=== PATIENT | male | born 1955 | race Caucasian/White ===

== ENCOUNTER 2017-04-16 12:25 | Day surgery (SDC) | payer OTHER ==
[~2017-04-16 12:25] MED LIST: APRESOLINE25 MG PO; ERGOCALCIF50000 UNIT PO; FERROUS SULFAT325 MG PO; LEVAQUIN500 MG PO; MICRO-K10 ME2 PO; NORVASC10 MG PO
[2017-04-16] MEDS ORDERED: AMOX TR-K CLV1 EAC4 PO (13:59)
[2017-04-16] MEDS ORDERED: ADVAIR HFA120 INHALA IH (13:59)
[2017-04-16] MEDS ORDERED: PREDNISONE20 MG PO (14:00)
[2017-04-16] MEDS ORDERED: NABI650T PO (14:00)
[2017-04-16] MEDS ORDERED: SPIRIVA RESPIMAT4 GM IH (14:01)
== END 2017-04-16 16:20 | disposition home or self-care (01) ==
LOC: CATH 12:25
DX: I12.0 Hypertensive chronic kidney disease with stage 5 chronic kidney disease or end stage renal disease (principal); N18.6 End stage renal disease
CPT/HCPCS: C1750; C1894; J1644; J2250; J3010; S0020

== ENCOUNTER 2017-06-15 08:51 | Day surgery (SDC) | payer OTHER ==
[~2017-06-15] VITALS: Ht 170.2 cm; Wt 54.0 kg
[~2017-06-15 08:51] MED LIST changes: +ADVAIR HFA120 INHALA IH; +AMOX TR-K CLV1 EAC4 PO; +CALCIUM 500 +1 EACH PO; +NABI650T PO; +PREDNISONE20 MG PO; +SPIRIVA RESPIMAT4 GM IH
[2017-06-15 09:38] VITALS: BP 197/94
[2017-06-15 09:56] LABS: HEMATOCRIT 41.1 % (38.0-50.0); MCH 27.8 PG (29.0-34.0); MCHC 29.9 G/DL (30.0-36.0); MEAN PLAT.VOLUME 9.8 uM^3 (9.0-12.4); PLATELET COUNT 323 K/uL (156-360); RBC DIS.WIDTH-CV 19.5 % (11.8-14.6); RBC DIS.WIDTH-SD 63.4 % (39-53); RED BLOOD COUNT 4.42 M/uL (4.00-5.50); WHITE BLOOD COUNT 12.2 K/uL (4.1-10.2)
[2017-06-15 10:23] LABS: ANION GAP 8 MEQ/L (2-14); CHLORIDE 101 MEQ/L (99-109); GFR ESTIMATE (CALCULATED) 33 mL/min/; GLUCOSE 76 mg/dL (70-99); POTASSIUM 3.8 MEQ/L (3.7-5.4); SAMPLE HEMOLYSIS CHECK 0; SAMPLE ICTERIC CHECK 0; SAMPLE LIPEMIA CHECK 0; SODIUM 140 MEQ/L (136-147); UREA NITROGEN (BUN) 16 mg/dL (9-23)
[2017-06-15 10:46] LABS: METH RESISTANT S AUREUS PCR ND (NEGATIVE)
[2017-06-15 14:28] VITALS: BP 164/77
[2017-06-15 14:49] VITALS: BP 169/79
== END 2017-06-15 15:00 | disposition home or self-care (01) ==
LOC: SDC 08:51
PROVIDERS: Surgery
PROC: 05SD0ZZ Reposition Right Cephalic Vein, Open Approach (ICD-10-PCS; principal; 2017-06-15)
DX: I12.0 Hypertensive chronic kidney disease with stage 5 chronic kidney disease or end stage renal disease (principal); N18.6 End stage renal disease; Z99.2 Dependence on renal dialysis; F17.200 Nicotine dependence, unspecified, uncomplicated; R09.89 Other specified symptoms and signs involving the circulatory and respiratory systems
CPT/HCPCS: 80048; 85027; 87641; 93005; J0131; J0690; J1644; J2250; J2405; J2720; J3010

== ENCOUNTER → 2017-09-14 | Outpatient (CLI) | payer OTHER | END | disposition home or self-care (01) | LOC: AMB 08:17 | PROC: 05PY03Z Removal of Infusion Device from Upper Vein, Open Approach (ICD-10-PCS; principal; 2017-09-14) | DX: N18.6 End stage renal disease (principal) ==

== ENCOUNTER 2018-05-02 07:15 | Day surgery (SDC) | payer OTHER | END 2018-05-02 10:02 | disposition home or self-care (01) | LOC: CATH 07:15 | PROC: 057Y3ZZ Dilation of Upper Vein, Percutaneous Approach (ICD-10-PCS; principal; 2018-05-02) | DX: T82.858A Stenosis of other vascular prosthetic devices, implants and grafts, initial encounter (principal); F17.200 Nicotine dependence, unspecified, uncomplicated; N18.6 End stage renal disease; Z99.2 Dependence on renal dialysis; Y83.2 Surgical operation with anastomosis, bypass or graft as the cause of abnormal reaction of the patient, or of later complication, without mention of misadventure at the time of the procedure | CPT/HCPCS: 87641; C1725; C1769; C1894; J1644; J2250; J3010 ==